=== PATIENT | male | born 1950 | race Caucasian/White ===

== ENCOUNTER 2018-09-03 05:45 | Day surgery (SDC) | payer OTHER, MEDICARE ==
[2018-09-02 13:14] LABS: BASOPHILS % (AUTO) 0.4 % (0-1); EOSINOPHILS # (AUTO) 0.2 X10'3 (0-0.9); EOSINOPHILS % (AUTO) 3.5 % (0-6); HEMATOCRIT 43.5 % (42.0-52.0); HEMOGLOBIN 14.6 g/dl (14.0-17.9); LYMPHOCYTES # (AUTO) 1.2 X10'3 (1.1-4.8); MEAN CORPUSCULAR HEMOGLOBIN 29.7 PG (27.0-31.0); MEAN CORPUSCULAR HGB CONC 33.5 % (33.0-36.5); MEAN CORPUSCULAR VOLUME 88.7 FL (78-98); MEAN PLATELET VOLUME 8.4 FL (7.4-10.4); MONOCYTES # (AUTO) 0.3 X10'3 (0-0.9); MONOCYTES % (AUTO) 5.6 % (2-12); NEUTROPHILS # (AUTO) 3.6 X10'3 (1.8-7.7); NEUTROPHILS % (AUTO) 67.5 % (42-75); PLATELET COUNT 162 X10'3 (140-440); RED CELL DISTRIBUTION WIDTH 13.1 % (11.5-14.5); WHITE BLOOD COUNT 5.4 X10'3 (4.5-11.0)
[2018-09-02 13:29] LABS: ALANINE AMINOTRANSFERASE 28 U/L (12-78); ALBUMIN 3.9 G/DL (3.4-5.0); ALBUMIN/GLOBULIN RATIO 1.3 (1.1-1.5); ALKALINE PHOSPHATASE 90 IU/L (46-116); ANION GAP 9 (8-16); ASPARTATE AMINO TRANSFERASE 19 U/L (10-37); BILIRUBIN,TOTAL 0.6 MG/DL (0.1-1.0); BLOOD UREA NITROGEN 25 MG/DL (7-18); BUN/CREATININE RATIO 22.9 (5.4-32.0); CALCIUM 8.9 MG/DL (8.5-10.1); CHLORIDE 103 MMOL/L (99-107); CREATININE 1.09 MG/DL (0.60-1.10); GLUCOSE 92 MG/DL (70-104); POTASSIUM 4.2 MMOL/L (3.5-5.1); SODIUM 140 MMOL/L (135-145); TOTAL CARBON DIOXIDE 27.7 MMOL/L (24-32); eGFR 67 ML/MIN
[2018-09-02 13:41] LABS: PARTIAL THROMBOPLASTIN TIME 27 SECONDS (22-32); PROTHROMBIN TIME 10.1 SECONDS (9.0-12.0)
[2018-09-03] VITALS (12 sets, daily range): BP systolic 100–124; BP diastolic 54–80
[2018-09-03] MEDS ORDERED: nitroGLYCERIN 0.4mg SUBLingual tab SL PRN (06:00)
[2018-09-03] MEDS ORDERED: LORazepam 0.5 MG tablet PO PRN (06:05)
[2018-09-03] MEDS ORDERED: normal saline 1000ml 1,000 ML IV SCH (06:05)
[2018-09-03] MEDS ORDERED: diphenhydrAMINE 25mg capsule PO PRN (06:05)
[2018-09-03] MEDS ORDERED: OXYB5TAB11 PO (06:15)
[2018-09-03] MEDS ORDERED: LURA20TA PO (06:15)
[2018-09-03] MEDS ORDERED: METO25TA6 PO (06:15)
[2018-09-03] MEDS ORDERED: SERT25TA PO (06:15)
[2018-09-03] MEDS ORDERED: CHOL400T32 PO (06:15)
[2018-09-03] MEDS ORDERED: CLON-528 PO (06:15)
[2018-09-03] MEDS ORDERED: TRAZ-219 PO (06:15)
[2018-09-03] MEDS ORDERED: FINA5TAB11 PO (06:15)
[2018-09-03] MEDS ORDERED: LOSA50TA3 PO (06:15)
[2018-09-03] MEDS ORDERED: NITR0.4T51 SL (06:15)
[2018-09-03] MEDS ORDERED: ASPI81TA52 PO (06:15)
[2018-09-03] MEDS ORDERED: MULT-1085 PO (06:15)
[2018-09-03] MEDS ORDERED: ATOR20TA PO (06:15)
[2018-09-03] MEDS ORDERED: DOCU-28 PO (06:15)
[2018-09-03] MEDS ORDERED: iohexol 350 MG/ML 50ML vial IV ONE (08:24)
[2018-09-03] MEDS ORDERED: LIDOcaine 1% (10mg/ml)w/preservative injection 20ml MDV ONE (08:24)
[2018-09-03] MEDS ORDERED: iohexol 350MG/ML 100ml bottle IV ONE (08:24)
[2018-09-03] MEDS ORDERED: fentaNYL/PF 50MCG/1 ML 2ML syringe ONE ×2 (08:24→08:50)
[2018-09-03] MEDS ORDERED: midazolam 2 mg/2 ml injection ONE ×2 (08:24→08:49)
[2018-09-03] MEDS ORDERED: nitroGLYCERIN-Tridil 50MG/D5W 250 ML IV ONE (09:09)
[2018-09-03] MEDS ORDERED: HYDROcodone/acetaminophen 5mg/325mg tablet PO PRN (09:55)
[2018-09-03] MEDS ORDERED: acetaminophen 325mg tablet PO PRN (09:55)
[2018-09-03] MEDS ORDERED: OXAZEpam 15mg capsule PO PRN (09:55)
[2018-09-03] MEDS ORDERED: ondansetron/PF 4mg/2ml inj IV PRN (09:55)
[2018-09-03] MEDS ORDERED: HYDROcodone/acetaminophen 10/325mg tab PO PRN (09:55)
[2018-09-03] MEDS ORDERED: proCHLORperazine 10 MG/2 ml inj IV PRN (09:55)
== END 2018-09-03 15:45 | disposition home or self-care (01) ==
LOC: SSTAY O 05:45
PROVIDERS: ATTEND Internal Medicine Cardiovascular Disease
DX: I25.118 Atherosclerotic heart disease of native coronary artery with other forms of angina pectoris (principal); I34.1 Nonrheumatic mitral (valve) prolapse; N40.0 Benign prostatic hyperplasia without lower urinary tract symptoms; I47.1 Supraventricular tachycardia; I44.7 Left bundle-branch block, unspecified; I49.3 Ventricular premature depolarization; I10 Essential (primary) hypertension; E78.5 Hyperlipidemia, unspecified; G47.33 Obstructive sleep apnea (adult) (pediatric); F10.21 Alcohol dependence, in remission; F32.9 Major depressive disorder, single episode, unspecified; Z79.891 Long term (current) use of opiate analgesic; Z87.891 Personal history of nicotine dependence; Z87.01 Personal history of pneumonia (recurrent); Z87.442 Personal history of urinary calculi; Z79.82 Long term (current) use of aspirin; Z79.899 Other long term (current) drug therapy; Z98.890 Other specified postprocedural states; Z83.3 Family history of diabetes mellitus; Z82.49 Family history of ischemic heart disease and other diseases of the circulatory system
CPT/HCPCS: 36415; 71046; 80053; 83880; 85025; 85610; 85730; 93458; 99152; A6257; C1760; J1644; J2001; J2250; J3010; J7030; Q0163; Q9967; A4620; C1769; J3490